=== PATIENT | female | born 1990 | race Caucasian/White ===

== ENCOUNTER 2016-12-02 12:17 | Emergency (ER) | payer MEDICAID ==
--- NOTE | 2016-12-08 19:54 | ER ---
ADMIT: 12/02/2016 RM/LOC: ER [facility] MR#: [id number] [id number] [place] [address] Emergency Room Report SEX: F AGE: 26 : 1990 DATE: 12/02/2016 CHIEF COMPLAINT: Headache. HISTORY OF PRESENT ILLNESS: A 26-year-old female, who presents with 5 hours duration of worsening headache. States she initially had some aura with some visual changes on the left. Gradually settled into the right. States she has sharp pain behind the right eye and nausea and two episodes of vomiting. States her pain is worse with light noise and movement. Feels very similar to her previous headaches. Rates it as a 10/10. States she has problems with vision. No nausea or vomiting. No fever, chills, tingling, or numbness in extremities, dizziness, or lightheadedness. She did take ibuprofen prior to arrival. States this did not improve her pain. Denies any recent head injuries. No thunderclap onset. COURSE IN THE EMERGENCY ROOM: GENERAL: The patient was seen and examined. She is afebrile and nontoxic. She is in a mild amount of distress. She is very photophobic. HEAD: Normocephalic and atraumatic. EYES: Equal and reactive. Extraocular muscles are intact. NECK: Soft and supple. No meningismus. LUNGS: Clear. No wheezes, rhonchi, or rales. HEART: Regular. ABDOMEN: Soft and nontender. SKIN: Warm and dry. EXTREMITIES: Nontender. No pedal edema. NEURO: She is alert, oriented, appropriate, and cooperative with exam. Cranial nerves are normal. She has a normal gait. Motor and sensation intact in the upper and lower extremities. She was given Toradol 15 mg IM as well as Reglan 10 mg IM, and Benadryl 25 mg IM. She states she is feeling improved at this point ready for discharge. IMPRESSION: Acute migraine headache with aura. DISPOSITION: The patient was discharged home. Continue home medications. Increase fluids. Activity as tolerated. Return with worsening signs or symptoms. Follow up with primary as needed. Questions sought and answered to the best of my ability and the patient's satisfaction. Discharged in stable condition. DORINA Zuniga / Aric Carreon MD / yogi JOB #: [id number] CC: Aric Carreon MD, Attending Physician Khanh Ferguson MD, Family Physician
== END 2016-12-02 14:08 | disposition home or self-care (01) ==
LOC: ER 12:17
DX: G43.109 Migraine with aura, not intractable, without status migrainosus (principal); Z88.8 Allergy status to other drugs, medicaments and biological substances